=== PATIENT | female | born 1995 ===

== ENCOUNTER 2021-04-13 02:20 | Emergency (ER) | payer SELFPAY ==
[2021-04-13 02:24] VITALS: BP 186/88
== END 2021-04-13 06:35 | disposition left against medical advice (07) ==
LOC: ED 02:20
DX: R10.9 Unspecified abdominal pain (principal); Z53.21 Procedure and treatment not carried out due to patient leaving prior to being seen by health care provider

== ENCOUNTER 2021-04-21 13:37 | Inpatient (IN) | payer SELFPAY ==
[2021-04-21] MEDS ORDERED: SODIUM CHLORIDE 0.9% 1000 ML 1,000 ML ONE ×2 (15:31→19:26)
[2021-04-21] MEDS ORDERED: SODIUM CHLORIDE 0.9% 1000 ML IV SOLN IV ONE (15:33)
[2021-04-21] MEDS ORDERED: ACETAMINOPHEN 500 MG TAB PO ONE (15:40)
[2021-04-21 15:52] LABS: Hematocrit 38.3 % (30.3-42.9); Hemoglobin 12.1 gm/dl (10.1-14.3); Mean Corpuscular HGB Conc 32 % (30-34); Mean Corpuscular Volume 88 fl (79-97); Platelet Count 414 K/mm3 (140-440); Red Blood Count 4.35 M/mm3 (3.65-5.03); Red Cell Distribution Width 14.2 % (13.2-15.2)
[2021-04-21] MEDS ORDERED: SODIUM CHLORIDE 0.9% 1000 ML 1,000 ML IV ONE (15:52)
--- NOTE | 2021-04-21 15:56 | Emergency Department Report ---
HPI - General Chief Complaint: Fever Time Seen by Provider: 04/21/21 15:32 - HPI HPI: 26-year-old female with no known past medical history presents complaining of worsening left lower quadrant abdominal pain for the past 2 days. Patient reports that for the past 2 weeks she has been experiencing a dull pain in her lower abdomen with decreased appetite. She has had intermittent diarrhea alternating with constipation over that period of time. When symptoms began she had dysuria but says she no longer has this. She also does report some urinary frequency as well. Over the past 2 days, however the pain has worsened and localized to the left lower quadrant of her abdomen. She took ibuprofen last night without significant relief. She came in today because the pain was so severe. Her LMP was April 14. She denies any associated fever, headache, vision change, chest pain, shortness of breath, cough, nausea/vomiting, back pain, vaginal bleeding, vaginal discharge, or any other associated symptoms or complaints. ED Past Medical Hx - Past Medical History Previous Medical History?: No - Surgical History Past Surgical History?: No ED Review of Systems ROS: Stated complaint: ABD PAIN Other details as noted in HPI Comment: All other systems reviewed and negative Constitutional: denies: chills, fever Eyes: denies: eye pain, vision change ENT: denies: throat pain, congestion Respiratory: denies: cough, shortness of breath Cardiovascular: denies: chest pain, palpitations Gastrointestinal: abdominal pain, diarrhea, constipation. denies: nausea, vomiting Genitourinary: dysuria, frequency. denies: hematuria, discharge Musculoskeletal: denies: back pain, arthralgia Skin: denies: rash, lesions Neurological: denies: headache, weakness, numbness Hematological/Lymphatic: denies: easy bleeding Physical Exam - Physical Exam Vital Signs: Vital Signs 04/21/21 15:21 Temperature 102.7 F H Pulse Rate 135 H Respiratory 16 Rate Blood Pressure 177/93 [Left] O2 Sat by Pulse 96 Oximetry Physical Exam: GENERAL: Well developed and well nourished. No acute distress HEAD: Normocephalic. No obvious signs of trauma. ENT: Very dry mucous membranes. EYES: Extraocular movements are intact. Pupils are equal round and reactive to light bilaterally NECK: Supple. Full ROM is intact. Trachea is midline. LUNGS: Nonlabored breathing. Equal chest rise bilaterally. Clear to auscultation bilaterally. CARDIOVASCULAR: Tachycardic but with regular rhythm. No murmurs or rubs. VASCULAR: Cap refill < 2 seconds ABDOMEN: Abdomen is soft and nondistended. There is tenderness to palpation of the left lower quadrant of the abdomen as well as the left suprapubic region/adnexal region. There is no guarding or rebound tenderness. SKIN: Skin is warm and dry NEURO: Patient is awake, alert, and oriented. publicity agent II-XII grossly intact. No focal deficits. Normal motor and sensory exam throughout. Normal speech. MUSCULOSKELETAL: No obvious deformities. No significant tenderness. Normal ROM throughout. BACK/SPINE: No midline tenderness or step-offs of the C/T/L spine. No costovertebral angle tenderness. ED Course Vital Signs 04/21/21 15:21 Temperature 102.7 F H Pulse Rate 135 H Respiratory 16 Rate Blood Pressure 177/93 [Left] O2 Sat by Pulse 96 Oximetry ED Medical Decision Making - Lab Data Result diagrams: 04/21/21 15:40 04/21/21 15:40 - Radiology Data Radiology results: report reviewed - Medical Decision Making 26-year-old female presenting with 2 weeks of lower abdominal pain which is now localized to the left lower quadrant. Patient also has had alternating diarrhea and constipation as well as dysuria and frequency. On initial assessment she is febrile with a temp of 103.3. She is tachycardic in the 130s. She has elevated blood pressure in the 170s systolic. On physical examination she has very dry mucous membranes. She has no CVA tenderness but there is tenderness to palpation of the left lower quadrant of the abdomen along with the left adnexal region. We will perform broad work-up with a full set of labs as well as CT of the abdomen pelvis with IV contrast to assess for evidence of colitis, diverticulitis, pyelonephritis, pancreatitis, tubo-ovarian abscess, or any other intra-abdominal/intra pelvic abnormality to explain the patient's presentation. We will also obtain duplex ultrasound of the pelvis to assess the bilateral ovaries as well as blood flow to the bilateral ovaries. We will give 30 mL/kg of IV fluids for now and reassess frequently. Labs are significant for leukocytosis with white blood cell count of 21.2. No significant anemia. Kidney function is normal but there is hypokalemia with potassium of 3.3 which we will replete. Urinalysis is consistent with a urinary tract infection. We will therefore order a dose of ceftriaxone now. Imaging studies are still pending. Repeat assessment, the patient remains in pain. I have ordered a dose of Dilaudid. CT of the abdomen and pelvis with IV contrast reveals findings consistent with 6.8 x 6.7 cm left tubo-ovarian abscess. I have ordered IV Flagyl and doxycycline and consulted [facility]. I spoke with Dr. Almeida of [facility] regarding the case and she agrees to admit the patient to her service. She will assume care. All this was discussed with the patient who expressed understanding and agreement with the plan of care. Critical care attestation.: If time is entered above; I have spent that time in minutes in the direct care of this critically ill patient, excluding procedure time. ED Disposition Clinical Impression: Tubo-ovarian abscess, Sepsis, Hypokalemia Disposition: ADMITTED INPATIENT Is pt being admited?: Yes Condition: Fair
[2021-04-21 16:14] LABS: Alanine Aminotransferase 10 units/L (7-56); Albumin 3.5 g/dL (3.9-5); Blood Urea Nitrogen 5 mg/dL (7-17); Calcium 9.4 mg/dL (8.4-10.2); Hemolysis Index 2
[2021-04-21 16:49] LABS: BUN/Creatinine Ratio 10; Bilirubin,Direct < 0.2 mg/dL (0-0.2)
[2021-04-21 17:04] LABS: INR 0.96 (0.87-1.13)
[2021-04-21 17:05] LABS: Partial Thromboplastin Time 35.4 Sec. (24.2-36.6)
[2021-04-21] MEDS ORDERED: cefTRIAXone/NS 2 GM/100 ML 2 GM/100 ML BAG IV ONE (17:25)
[2021-04-21] MEDS ORDERED: POTASSIUM CHLORIDE ER 20 MEQ TAB PO ONE (17:26)
--- NOTE | 2021-04-21 17:28 | XRay Report ---
CHEST 2 VIEWS INDICATION: fever sepsis. COMPARISON: None FINDINGS: SUPPORT DEVICES: None. HEART: Within normal limits. LUNGS/PLEURA: No acute air space or interstitial disease. No pneumothorax. ADDITIONAL FINDINGS: None. IMPRESSION: 1. No acute findings. Signer Name: Juan Warren MD Signed: 04/21/2021 5:24 PM Workstation Name: [id number]
[2021-04-21 17:43] LABS: Bilirubin,Urine NEG (Negative); Blood,Urine NEG (Negative); Color,Urine Yellow (Yellow); Mucus,Urine 3+ /HPF
[2021-04-21 18:55] LABS: Platelet Estimate Consistent w Auto; RBC Morphology Normal; Total Cells Counted 100
[2021-04-21] MEDS ORDERED: HYDROmorphone 1 MG/1 ML INJ IV ONE (19:02)
--- NOTE | 2021-04-21 20:32 | Cat Scan Report ---
CT ABDOMEN AND PELVIS WITH CONTRAST INDICATION: LLQ tenderness, sepsis. TECHNIQUE: Axial CT images were obtained through the abdomen and pelvis after 100 cc Omni [address] scans at this location are performed using CT dose reduction for ALARA by means of automated expos ure control. COMPARISON: None available. FINDINGS: LOWER CHEST: No significant abnormality. LIVER: No significant abnormality. GALLBLADDER: No significant abnormality. BILE DUCTS: No significant abnormality. PANCREAS: No significant abnormality. SPLEEN: No significant abnormality. ADRENALS: No significant abnormality. RIGHT KIDNEY and URETER: No significant abnormality. LEFT KIDNEY and URETER: No significant abnormality. STOMACH and SMALL BOWEL: No significant abnormality. COLON: No significant abnormality. APPENDIX: Normal. PERITONEUM: No free fluid. No free air. No fluid collection. LYMPH NODES: No significant adenopathy. AORTA and ARTERIES: No significant abnormality. IVC and VEINS: No significant abnormality. URINARY BLADDER: No significant abnormality. REPRODUCTIVE ORGANS: Probable left tubo-ovarian abscess with thin peripheral enhancement measuring 6. 8 x 6.7 cm image 151. ADDITIONAL FINDINGS: None. SKELETAL SYSTEM: No significant abnormality. IMPRESSION: 1. Probable PID/left tubo-ovarian abscess. Signer Name: Sajan Ingram MD Signed: 04/21/2021 8:27 PM Workstation Name: [id number]
[2021-04-21] MEDS ORDERED: metroNIDAZOLE/NS 500 MG/100 ML 500 MG/100 ML BAG IV ONE (20:45)
[2021-04-21] MEDS ORDERED: DOXYCYCLINE HYCLATE 100 MG in SODIUM CHLORIDE 0.9% 250ML 250 ML IV ONE (21:00)
--- NOTE | 2021-04-21 21:43 | Ultrasound Report ---
ULTRASOUND PELVIS INDICATION: LLQ tenderness, eval blood flow to ovaries. TECHNIQUE: Transabdominal. Duplex Color Doppler used: Yes. COMPARISON: CT abdomen pelvis same day FINDINGS: Uterus: Present. Size: Not measured properly secondary to adjacent tubo-ovarian abscess Endometrial complex: Normal measuring 16 mm. Mass lesions: None. Additional findings: None. Right Ovary -- Normal. Blood flow: Normal. Cyst or mass: None. Left Ovary-- Normal. Blood flow: Normal. Cyst or mass: Complex left loculated fluid collections/tubo-ovarian abscess measuring 6.6 x 5.2 x 7.8 cm Urinary Bladder: Normal. Free Fluid: None. Additional Findings: None. IMPRESSION: 1. 7.8 cm left tubo-ovarian abscess Signer Name: Sajan Ingram MD Signed: 04/21/2021 9:38 PM Workstation Name: [id number]
[2021-04-21] MEDS ORDERED: HYDROmorphone 1 MG/1 ML INJ ONE (22:16)
[2021-04-22] MEDS ORDERED: metroNIDAZOLE 500 MG TAB PO ONE (01:00)
[2021-04-22] MEDS ORDERED: DOXYCYCLINE HYCLATE 100 MG in SODIUM CHLORIDE 0.9% 250ML 250 ML IV ONE (01:20)
[2021-04-22] MEDS ORDERED: DOXYCYCLINE 100 MG CAP ONE (01:47)
[2021-04-22] MEDS: AZITHROMYCIN 250 MG TAB PO SCH (11:17)
[2021-04-22] MEDS: KETOROLAC 30 MG/1 ML INJ IV PRN (11:17)
[2021-04-22 13:16] LABS: Basophils % (Auto) 0.2 % (0.0-1.8); Hematocrit 35.4 % (30.3-42.9); Hemoglobin 11.1 gm/dl (10.1-14.3); Lymphocytes # (Auto) 1.1 K/mm3 (1.2-5.4); Lymphocytes % (Auto) 5.3 % (13.4-35.0); Mean Corpuscular HGB Conc 31 % (30-34); Mean Corpuscular Volume 88 fl (79-97); Monocytes # (Auto) 2.8 K/mm3 (0.0-0.8); Monocytes % (Auto) 14.2 % (0.0-7.3); Platelet Count 400 K/mm3 (140-440); Red Blood Count 4.03 M/mm3 (3.65-5.03); Red Cell Distribution Width 14.1 % (13.2-15.2)
[2021-04-23] MEDS: ACETAMINOPHEN 325 MG TAB PO PRN (01:21)
[2021-04-23] MEDS: KETOROLAC 30 MG/1 ML INJ IV PRN ×2 (04:01→17:23)
--- NOTE | 2021-04-23 08:12 | History and Physical Report ---
History of Present Illness Date of examination: 04/22/21 Date of admission: 04/22/21 12:30 Chief complaint: Pelvic pain/Tubo-ovarian abcess History of present illness: Pt is a 26 year old G0 who presented to the ED with onset of worsening pelvic pain associated with fever, nausea and vomiting. Pt was found to have elevated white count to 21k as well as tachycardia and fever. She was admitted for iv antibiotics and monitoring with possible consideration for surgical intervention. Past History Past Medical History: no pertinent history Past Surgical History: no surgical history Social history: single Medications and Allergies Allergies Allergy/AdvReac Type Severity Reaction Status Date / Time No Known Allergies Allergy Unverified 04/13/21 02:26 Home Medications Medication Instructions Recorded Confirmed Last Taken Type No Known Home Medications [No 04/22/21 04/22/21 Unknown History Reported Home Medications] Active Meds: Active Medications Acetaminophen (Acetaminophen 325 Mg Tab) 650 mg PO Q6H PRN PRN Reason: Pain, Mild (1-3) Last Admin: 04/23/21 01:21 Dose: 650 mg Documented by: Azithromycin (Azithromycin 250 Mg Tab) 500 mg PO QDAY CHARISMA; Protocol Last Admin: 04/22/21 11:17 Dose: 500 mg Documented by: Lactated Ringer's (Lactated Ringers) 1,000 mls @ 150 mls/hr IV DIRECT CHARISMA Ketorolac Tromethamine (Ketorolac 30 Mg/1 Ml Inj) 30 mg IV Q8H PRN PRN Reason: Pain, Moderate (4-6) Stop: 04/27/21 10:59 Last Admin: 04/23/21 04:01 Dose: 30 mg Documented by: Review of Systems All systems: negative Constitutional: fever, chills, sweats Genitourinary: pelvic pain - Vital Signs Vital signs: Vital Signs Temp Pulse Resp BP Pulse Ox 102.7 F H 135 H 16 177/93 96 04/21/21 15:21 04/21/21 15:21 04/21/21 15:21 04/21/21 15:21 04/21/21 15:21 Temp Pulse Resp BP Pulse Ox 98.5 F 93 H 16 137/82 100 04/23/21 04:30 04/23/21 04:30 04/23/21 04:30 04/23/21 04:30 04/23/21 04:30 - Physical Exam Breasts: Positive: deferred Cardiovascular: Normal S1, Normal S2, Other (tachycardia) Lungs: Positive: Clear to auscultation Abdomen: Positive: normal appearance, soft, tenderness (llq) Genitourinary (Female): Positive: normal perenium Cervix: Positive: discharge, other (cervical motion tenderness) Results Result Diagrams: 04/23/21 10:35 04/21/21 15:40 Abnormal lab results 04/22/21 Range/Units 11:48 WBC 19.8 H (4.5-11.0) K/mm3 Lymph % (Auto) 5.3 L (13.4-35.0) % Reagan % (Auto) 14.2 H (0.0-7.3) % Lymph # (Auto) 1.1 L (1.2-5.4) K/mm3 Reagan # (Auto) 2.8 H (0.0-0.8) K/mm3 Seg Neutrophils % 80.3 H (40.0-70.0) % Seg Neutrophils # 15.9 H (1.8-7.7) K/mm3 All other labs normal. Assessment and Plan Pt is a 26 year old g0 who presents with a tuboovarian abcess. Will continue to treat with antibiotics for now to see if symptoms resolve then consider ct g uided drainage.
[2021-04-23] MEDS: LACTATED RINGERS 1,000 ML IV SCH ×3 (09:30→23:24)
[2021-04-23] MEDS: cefTRIAXone/NS 2 GM/100 ML 2 GM/100 ML BAG IV SCH (09:31)
[2021-04-23] MEDS: AZITHROMYCIN 250 MG TAB PO SCH (09:31)
[2021-04-23] MEDS: DOXYCYCLINE HYCLATE 100 MG in SODIUM CHLORIDE 0.9% 250ML 250 ML IV SCH ×2 (10:43→22:20)
[2021-04-23 10:55] LABS: Basophils % (Auto) 0.2 % (0.0-1.8); Eosinophils % (Auto) 0.1 % (0.0-4.3); Hematocrit 34.2 % (30.3-42.9); Hemoglobin 10.6 gm/dl (10.1-14.3); Lymphocytes # (Auto) 1.4 K/mm3 (1.2-5.4); Lymphocytes % (Auto) 7.5 % (13.4-35.0); Mean Corpuscular HGB Conc 31 % (30-34); Mean Corpuscular Volume 87 fl (79-97); Monocytes # (Auto) 2.3 K/mm3 (0.0-0.8); Monocytes % (Auto) 12.5 % (0.0-7.3); Platelet Count 364 K/mm3 (140-440); Red Blood Count 3.94 M/mm3 (3.65-5.03); Red Cell Distribution Width 14.1 % (13.2-15.2)
[2021-04-23] MEDS: metroNIDAZOLE 500 MG TAB PO SCH ×2 (13:35→22:20)
[2021-04-23] MEDS ORDERED: IBUPROFEN 600 MG TAB PO ONE (22:46)
[2021-04-24] MEDS: KETOROLAC 30 MG/1 ML INJ IV PRN ×2 (01:41→10:08)
[2021-04-24] MEDS: metroNIDAZOLE 500 MG TAB PO SCH ×4 (05:12→23:08)
[2021-04-24] MEDS: LACTATED RINGERS 1,000 ML IV SCH (05:13)
[2021-04-24] MEDS: AZITHROMYCIN 250 MG TAB PO SCH ×2 (08:32→12:28)
--- NOTE | 2021-04-24 13:32 | Ultrasound Report ---
US pelvic complete INDICATION / CLINICAL INFORMATION: tubo-ovarian abcess. TECHNIQUE: Transabdominal. Duplex Color Doppler used: Yes. COMPARISON: CT abdomen and ultrasound and pelvis April 21 2021 FINDINGS: UTERUS: Measures 9.8 cm. -Endometrial stripe measures 0.6 cm. - Mass lesions: None. RIGHT ADNEXA: No significant ovarian cyst or mass. Normal color Doppler blood flow. LEFT ADNEXA: There is a 9.4 x 6.5 x 6.3 cm left complex thick-walled collection with peripheral blood flow. URINARY BLADDER: No significant abnormality. FREE FLUID: None. ADDITIONAL FINDINGS: None. IMPRESSION: 1. 9.4 x 6.5 x 6.3 cm left adnexal thick-walled collection most consistent with a tubo-ovarian absces s. Signer Name: Arturo Vidal MD Signed: 04/24/2021 1:28 PM Workstation Name: [id number]
--- NOTE | 2021-04-24 14:41 | Progress Note ---
Assessment and Plan HD 2 for this G0 who presents with TOA. Pt is nulliparous and would prefer not to lose tube if possible. Antibiotics do not appear to be decreasing the size of the abcess and if fact it is slightly larger. Will consult IR for consideration of guided drainage of mass to hopefully avoid need for surgery. Subjective Date of service: 04/24/21 Principal diagnosis: tuboovarain abcess Interval history: Pt is a 26 year old female with tuboovarian abcess on ultrasound and ct. Pt reports having less pain on today then when admitted. White count remains elevated although vital are now stable. Objective - Constitutional Vitals: Vital Signs - 12hr 04/24/21 04/24/21 02:45 05:01 Temperature 98.7 F Pulse Rate 87 Respiratory 16 Rate Blood Pressure 145/79 O2 Sat by Pulse 96 99 Oximetry General appearance: Present: no acute distress - Respiratory Respiratory effort: normal - Cardiovascular Rhythm: regular Heart Sounds: Present: S1 & S2 - Gastrointestinal General gastrointestinal: Present: tender (mildly) Localized gastrointestinal: tender: LLQ - Genitourinary Female genitourinary: deferred - Labs CBC & Chem 7: 04/23/21 10:35 04/21/21 15:40 Medications & Allergies - Medications Allergies/Adverse Reactions: Allergies No Known Allergies Allergy (Unverified 04/13/21 02:26) Home Medications: Home Medications Medication Instructions Recorded Confirmed Last Taken Type No Known Home Medications [No 04/22/21 04/22/21 Unknown History Reported Home Medications] Active Medications: Generic Name Dose Route Start Last Admin Trade Name Freq PRN Reason Stop Dose Admin Acetaminophen 650 mg 04/22/21 11:00 04/23/21 01:21 Acetaminophen 325 Mg Tab PO 650 mg Q6H PRN Administration Pain, Mild (1-3) Azithromycin 500 mg 04/22/21 11:30 04/24/21 12:28 Azithromycin 250 Mg Tab PO Not Given QDAY CHARISMA Protocol Lactated Ringer's 1,000 mls @ 150 mls/hr 04/22/21 11:00 04/24/21 05:13 Lactated Ringers IV 150 mls/hr DIRECT CHARISMA Administration Ceftriaxone Sodium 2 gm in 100 mls @ 200 mls/hr 04/23/21 10:00 04/23/21 09:31 Rocephin/Ns 2 Gm/100 Ml IV 200 mls/hr Q24HR CHARISMA Administration Protocol Doxycycline Hyclate 100 mg/ 250 mls @ 250 mls/hr 04/23/21 10:00 04/23/21 22:20 Sodium Chloride IV 250 mls/hr Q12HR CHARISMA Administration Ketorolac Tromethamine 30 mg 04/22/21 11:00 04/24/21 10:08 Ketorolac 30 Mg/1 Ml Inj IV 04/27/21 10:59 30 mg Q8H PRN Administration Pain, Moderate (4-6) Metronidazole 500 mg 04/23/21 14:00 04/24/21 12:29 Metronidazole 500 Mg Tab PO 500 mg Q8HR CHARISMA Administration
[2021-04-24] MEDS: DOXYCYCLINE HYCLATE 100 MG in SODIUM CHLORIDE 0.9% 250ML 250 ML IV SCH (23:04)
[2021-04-24] MEDS: ACETAMINOPHEN 325 MG TAB PO PRN (23:48)
[2021-04-25] MEDS: KETOROLAC 30 MG/1 ML INJ IV PRN ×2 (02:40→11:25)
[2021-04-25] MEDS: metroNIDAZOLE 500 MG TAB PO SCH ×3 (05:10→22:45)
[2021-04-25] MEDS: LACTATED RINGERS 1,000 ML IV SCH ×2 (05:12→17:13)
[2021-04-25] MEDS ORDERED: fentaNYL 100 MCG/2 ML INJ IV NR (08:31)
[2021-04-25] MEDS ORDERED: MIDAZOLAM 5 MG/5 ML INJ MDV IV NR (09:00)
--- NOTE | 2021-04-25 09:28 | Operative Report ---
Operative Report Operative Report: Exam: CT-guided placement of 8 [place] drain Clinical indication: Patient with a history of left TOA Date: 04/25/2021 Procedure: Following an explanation of the risk, benefits and alternatives; written informed consent was obtained. The patient was brought to the CT suite and placed in supine position on the examination table. Initial glass sander belt images of the lower abdomen and pelvis were obtained and an appropriate access site was chosen in the left lower quadrant lateral to the inferior epigastric artery. The patient's lower abdomen was prepped and draped in the usual sterile fashion. 1% lidocaine was used for anesthesia. Using intermittent CT guidance, a 15 cm 17-gauge trocar needle was advanced into the central aspect of the TOA. There is prompt return of purulent fluid. The trocar was removed and a 0.035 guidewire advanced and coiled within the abscess. Additional CT images were obtained to document appropriate positioning. The needle was removed and following serial dilation over the guidewire, an 8 [place] drainage catheter was advanced over the guidewire. The guidewire and trocar were removed. There is prompt return of purulent fluid. A total of 80 mL of purulent fluid was aspirated. The sample sent for laboratory analysis. The catheter was then placed to AURORA bulb drainage. The catheter was securely fastened to the skin surface using 2-0 silk suture and a sterile dressing applied. The patient tolerated the procedure well. There were no immediate postprocedure complications. Conscious sedation was performed under the guidance of radiologic nursing. Continuous cardiopulmonary monitoring was utilized. Impression: CT-guided placement of 8 [place] drain in left TOA with 80 mL of purulent fluid aspirated. A sample was sent for laboratory analysis.
[2021-04-25] MEDS: DOXYCYCLINE HYCLATE 100 MG in SODIUM CHLORIDE 0.9% 250ML 250 ML IV SCH (11:20)
[2021-04-25] MEDS: AZITHROMYCIN 250 MG TAB PO SCH (11:25)
[2021-04-25] MEDS: cefTRIAXone/NS 2 GM/100 ML 2 GM/100 ML BAG IV SCH (13:16)
[2021-04-25 21:36] LABS: Basophils % (Auto) 0.2 % (0.0-1.8); Eosinophils % (Auto) 0.3 % (0.0-4.3); Hematocrit 32.4 % (30.3-42.9); Hemoglobin 10.2 gm/dl (10.1-14.3); Lymphocytes # (Auto) 0.9 K/mm3 (1.2-5.4); Lymphocytes % (Auto) 5.1 % (13.4-35.0); Mean Corpuscular HGB Conc 32 % (30-34); Mean Corpuscular Volume 87 fl (79-97); Monocytes % (Auto) 5.6 % (0.0-7.3); Platelet Count 378 K/mm3 (140-440); Red Blood Count 3.73 M/mm3 (3.65-5.03); Red Cell Distribution Width 14.2 % (13.2-15.2)
[2021-04-26] MEDS: LACTATED RINGERS 1,000 ML IV SCH ×2 (03:22→21:19)
[2021-04-26] MEDS: KETOROLAC 30 MG/1 ML INJ IV PRN ×2 (03:23→21:20)
[2021-04-26] MEDS: metroNIDAZOLE 500 MG TAB PO SCH ×3 (05:45→21:26)
[2021-04-26] MEDS: cefTRIAXone/NS 2 GM/100 ML 2 GM/100 ML BAG IV SCH (08:10)
[2021-04-26] MEDS: DOXYCYCLINE HYCLATE 100 MG in SODIUM CHLORIDE 0.9% 250ML 250 ML IV SCH (08:15)
--- NOTE | 2021-04-26 10:33 | Progress Note ---
Assessment and Plan POD [address] guided drainage of toa. Doing well. Will recheck CBC tonight. Await cultures of abcess fluid. Pt now with stable vitals. To consider d/c when drainage significantly decreases and white count trends down. Subjective Date of service: 04/25/21 Principal diagnosis: tuboovarain abcess Interval history: Pt is a 26 year old female who presents with TOA, now post op CT guided drainage this AM. Pt reports mild discomfort at drain site.She is afebrile. Pt reports decreased appetite. Objective - Exam Narrative Exam: Pt is standing at sink. Ambulating well. Communicative and pleasant - Constitutional Vitals: Vital Signs - 12hr 04/25/21 04/26/21 04/26/21 23:51 03:49 04:07 Temperature 99.4 F 99.4 F Pulse Rate 91 H 76 Respiratory 16 16 Rate Blood Pressure 133/84 137/90 O2 Sat by Pulse 96 99 98 Oximetry 04/26/21 09:04 Temperature 98.9 F Pulse Rate 88 Respiratory 18 Rate Blood Pressure 150/94 O2 Sat by Pulse 95 Oximetry General appearance: Present: no acute distress - Respiratory Respiratory effort: normal - Breasts Breasts: deferred - Cardiovascular Rhythm: regular Heart Sounds: Present: S1 & S2 - Gastrointestinal General gastrointestinal: Present: soft, non-tender Localized gastrointestinal: tender: LLQ (drain attached to skin, only scant purulent drainage in AURORA drain), surgical scar: LLQ Rectal Exam: deferred - Genitourinary Female genitourinary: deferred - Integumentary Integumentary: clear, warm, dry - Labs CBC & Chem 7: 04/25/21 20:52 04/21/21 15:40 Labs: Abnormal lab results 04/25/21 Range/Units 20:52 WBC 18.2 H (4.5-11.0) K/mm3 MCH 27 L (28-32) pg Lymph % (Auto) 5.1 L (13.4-35.0) % Lymph # (Auto) 0.9 L (1.2-5.4) K/mm3 Dyer # (Auto) 1.0 H (0.0-0.8) K/mm3 Seg Neutrophils % 88.8 H (40.0-70.0) % Seg Neutrophils # 16.2 H (1.8-7.7) K/mm3 Medications & Allergies - Medications Allergies/Adverse Reactions: Allergies No Known Allergies Allergy (Verified 04/25/21 08:16) Home Medications: Home Medications Medication Instructions Recorded Confirmed Last Taken Type Ibuprofen [Motrin] 800 mg PO Q8HR PRN 04/25/21 04/25/21 4 Days Ago History ~04/21/21 Active Medications: Generic Name Dose Route Start Last Admin Trade Name Freq PRN Reason Stop Dose Admin Acetaminophen 650 mg 04/22/21 11:00 04/24/21 23:48 Acetaminophen 325 Mg Tab PO 650 mg Q6H PRN Administration Pain, Mild (1-3) Lactated Ringer's 1,000 mls @ 150 mls/hr 04/22/21 11:00 04/26/21 03:22 Lactated Ringers IV 150 mls/hr DIRECT CAHRISMA Administration Levofloxacin/Dextrose 500 mg in 100 mls @ 100 mls/hr 04/25/21 14:00 04/25/21 15:15 Levaquin 500mg/100ml IV 100 mls/hr Q24H CHARISMA Administration Protocol Ketorolac Tromethamine 30 mg 04/22/21 11:00 04/26/21 03:23 Ketorolac 30 Mg/1 Ml Inj IV 04/27/21 10:59 30 mg Q8H PRN Administration Pain, Moderate (4-6) Metronidazole 500 mg 04/23/21 14:00 04/26/21 05:45 Metronidazole 500 Mg Tab PO 500 mg Q8HR CHARISMA Administration
--- NOTE | 2021-04-27 01:28 | Progress Note ---
Assessment and Plan POD 1 s/p drainage of TOA. Pt showing signs of i mprovement. Pt has been afebrile and now has normal heart rate. Will check CBC in am. If in normal range and minimal drainage from KATIE drain, would consider discharge with po antibiotics. Subjective Date of service: 05/27/21 Principal diagnosis: tuboovarain abcess Interval history: Pt is POD 1 s/p drainage of TOA via ct guided drainage. Pt reports less pain today. Pt also with more stable vitals on today. Still having some minimal drainage from KATIE drain. Most recent CBC still showed elevated white count of 18.2 Pt remains afebrile. Objective - Constitutional Vitals: Vital Signs - 12hr 04/26/21 04/26/21 15:00 16:49 Temperature 98.7 F Pulse Rate 74 Respiratory 18 Rate Blood Pressure 147/88 O2 Sat by Pulse 98 97 Oximetry General appearance: Present: no acute distress - Respiratory Respiratory effort: normal - Cardiovascular Rhythm: regular Heart Sounds: Present: S1 & S2 Extremities: no ischemia - Gastrointestinal General gastrointestinal: Present: soft, non-tender Localized gastrointestinal: tender: LLQ (around area of katie drain) Rectal Exam: deferred - Genitourinary Female genitourinary: deferred - Labs CBC & Chem 7: 04/25/21 20:52 04/21/21 15:40 Medications & Allergies - Medications Allergies/Adverse Reactions: Allergies No Known Allergies Allergy (Verified 04/25/21 08:16) Home Medications: Home Medications Medication Instructions Recorded Confirmed Last Taken Type Ibuprofen [Motrin] 800 mg PO Q8HR PRN 04/25/21 04/25/21 4 Days Ago History ~04/21/21 Active Medications: Generic Name Dose Route Start Last Admin Trade Name Freq PRN Reason Stop Dose Admin Acetaminophen 650 mg 04/22/21 11:00 04/24/21 23:48 Acetaminophen 325 Mg Tab PO 650 mg Q6H PRN Administration Pain, Mild (1-3) Lactated Ringer's 1,000 mls @ 150 mls/hr 04/22/21 11:00 04/26/21 21:19 Lactated Ringers IV 150 mls/hr DIRECT CHARISMA Administration Levofloxacin/Dextrose 500 mg in 100 mls @ 100 mls/hr 04/25/21 14:00 04/26/21 15:21 Levaquin 500mg/100ml IV 100 mls/hr Q24H CHARISMA Administration Protocol Ketorolac Tromethamine 30 mg 04/22/21 11:00 04/26/21 21:20 Ketorolac 30 Mg/1 Ml Inj IV 04/27/21 10:59 30 mg Q8H PRN Administration Pain, Moderate (4-6) Metronidazole 500 mg 04/23/21 14:00 04/26/21 21:26 Metronidazole 500 Mg Tab PO 500 mg Q8HR CHARISMA Administration
[2021-04-27 04:35] LABS: Hematocrit 31.5 % (30.3-42.9); Mean Corpuscular HGB Conc 32 % (30-34); Mean Corpuscular Volume 87 fl (79-97); Platelet Count 357 K/mm3 (140-440); Red Blood Count 3.62 M/mm3 (3.65-5.03); Red Cell Distribution Width 14.1 % (13.2-15.2)
[2021-04-27] MEDS: metroNIDAZOLE 500 MG TAB PO SCH ×2 (05:19→15:35)
[2021-04-27] MEDS: LACTATED RINGERS 1,000 ML IV SCH (05:19)
[2021-04-27 06:11] LABS: Band Neutrophils # (Manual) 0.2 K/mm3; Total Cells Counted 100
[2021-04-27 06:12] LABS: Hypochromasia 1+; Platelet Estimate Consistent w Auto
--- NOTE | 2021-04-27 15:57 | Progress Note ---
Assessment and Plan A: Tubo Ovarian Abscess: afebrile with normal white count today POD#2 s/p CT guided drainage procedure Obesity P: Drain removed today without issue. Steristrip placed to reapproximate skin Pt will be discharged on PO Doxycycline for 14 days and follow up with Dr Almeida in 1 wk Subjective - Subjective Date of service: 04/27/21 Principal diagnosis: tuboovarain abcess; POD#2 s/p IR drainage Interval history: Pt feels well today and is anxious to go home. Afebrile overnight. Her nurse reports 30 mL of output since yesterday. Sensitivities from cultures are available to guide antibiotic treatment. Patient reports: appetite normal, voiding normally, pain well controlled, ambulating normally Objective - Vital Signs Latest vital signs: Vital Signs Temp Pulse Resp BP Pulse Ox 04/27/21 14:00 99 04/27/21 12:01 63 18 148/97 100 04/27/21 07:39 99.3 F 87 16 148/87 98 04/27/21 04:02 98.4 F 84 14 144/80 97 04/27/21 02:04 100 04/26/21 23:22 98.8 F 73 16 144/87 98 04/26/21 16:49 98.7 F 74 18 147/88 97 Intake and Output 04/27/21 04/27/21 04/27/21 06:59 14:59 22:59 Intake Total 1200 Balance 1200 Intake: IV 1000 Lactated Ringers 1,000 ml 1000 @ 150 mls/hr IV DIRECT CHARISMA Rx#:[id number] Oral 200 Other: Total, Intake Amount 200 Voiding Method Toilet Weight 78.6 kg - Exam Breasts: Present: deferred Abdomen: Present: soft (obese ) - Labs Labs: Abnormal lab results 04/27/21 Range/Units 04:27 RBC 3.62 L (3.65-5.03) M/mm3 Hgb 10.0 L (10.1-14.3) gm/dl Seg Neuts % (Manual) 88.0 H (40.0-70.0) % Lymphocytes % (Manual) 4.0 L (13.4-35.0) % Seg Neutrophils # Man 8.2 H (1.8-7.7) K/mm3 Lymphocytes # (Manual) 0.4 L (1.2-5.4) K/mm3
--- NOTE | 2021-04-27 15:58 | Discharge Summary ---
Providers - Providers Date of Admission: 04/22/21 12:30 Date of discharge: 04/27/21 Attending physician: ILAN MENDEZ 04/24/21 14:35 Consult to Interventional Radiology [CONS] Urgent Consulting Provider: CORA YARBROUGH Reason For Exam: drainage of tuboovarian abcess Notified:: elementary secretary Primary care physician: SCREEN HANDLER Hospitalization Reason for admission: other (tubo-ovarian abscess ) Procedure: other (CT guided drainage procedure on 04/25/21 ) Procedure details: Please see operative report Incision: intact (with steristrip ) Hospital course: This patient was admitted with fever and abdominal pain and found to have a tubo-ovarian abscess. She was given IV antibiotics and underwent a CT-guided drainage procedure on 04/25/2021. By postoperative day #2 her drain was putting out minimal output, she remained afebrile, and her white count had normalized. Her drain was removed and a Steri-Strip was placed over her incision. She was discharged home on a 2-week course of doxycycline twice daily. She is instructed to follow-up with Dr. Mendez in 1 week in the office. Condition at discharge: Stable Disposition: 01 HOME / SELF CARE / HOMELESS - Discharge Diagnoses (1) Obesity Status: Acute Qualifiers: Obesity type: unspecified obesity type Obesity classification: adult class 1 (BMI 30 - 34.9) Serious obesity comorbidity presence: unspecified whether serious comorbidity present Body mass index: BMI 33.0-33.9 Qualified Code(s): E66.9 - Obesity, unspecified; Z68.33 - Body mass index [BMI] 33.0-33.9, adult (2) Elevated blood pressure reading Status: Acute (3) Sepsis Status: Acute (4) Tubo-ovarian abscess Status: Acute Plan - Discharge Medications Prescriptions: Doxycycline Hyclate [Doxycycline Hyclate TAB] 100 mg PO Q12HR #28 tab Ibuprofen [Motrin 800 MG tab] 800 mg PO Q8HR PRN #30 tablet PRN Reason: Pain, Moderate (4-6) - Provider Discharge Summary Activity: routine, no sex for 6 weeks, no heavy lifting 4 weeks, no strenuous exercise Diet: routine Instructions: routine Additional instructions: [] Smoking cessation referral if applicable(refer to patient education folder for contact #) [] Refer to [facility] Booklet Call your doctor immediately for: * Fever > 100.5 * Heavy vaginal bleeding ( >1 pad per hour) * Severe persistent headache * Shortness of breath * Reddened, hot, painful area to leg or breast * Drainage or odor from incision. * Keep incision clean and dry at all times and follow doctor's instructions regarding bathing/showering - Follow up plan Follow up: PRIMARY CARE,MD [Primary Care Provider] - 3-5 Days ILAN MENDEZ MD [Staff Physician] - 7 Days
[2021-04-27 16:11] VITALS: BP 172/109
== END 2021-04-27 17:30 | disposition home or self-care (01) | DRG 872 ==
LOC: ED 13:37 → 3A 21:30 → OBSVTOIN 04-22 12:30 → 3A 04-22 17:27 → 4A 04-24 20:31
PROVIDERS: ADMIT Obstetrics & Gynecology; ATTEND Obstetrics & Gynecology
PROC: 0U9130Z Drainage of Left Ovary with Drainage Device, Percutaneous Approach (ICD-10-PCS; principal; 2021-04-25)
DX: A41.9 Sepsis, unspecified organism (principal); N70.03 Acute salpingitis and oophoritis; E87.6 Hypokalemia; N70.92 Oophoritis, unspecified; E66.9 Obesity, unspecified; Z68.33 Body mass index [BMI] 33.0-33.9, adult; Z20.822 Contact with and (suspected) exposure to COVID-19
CPT/HCPCS: 10160; 36415; 71046; 74177; 76856; 77012; 80048; 80076; 81001; 82140; 83690; 83735; 84702; 85007; 85025; 85610; 85730; 87040; 87076; 87086; 87116; 87186; 88112; 88305; 93975; 99285; G0378; J3490; J7517; Q0162; C1769; J0696; J1170; J1885; J1956; J2250; J3010; J7030; J7050; J7120; Q9967

== ENCOUNTER 2021-10-02 17:31 | Emergency (ER) | payer SELFPAY | END 2021-10-02 17:36 | disposition left against medical advice (07) | LOC: ED 17:31 | DX: R10.31 Right lower quadrant pain (principal); Z53.21 Procedure and treatment not carried out due to patient leaving prior to being seen by health care provider ==